=== PATIENT | female | born 1960 | race Caucasian/White ===

== ENCOUNTER 2016-06-18 12:04 | Emergency (ER) | payer BC ==
--- NOTE | 2016-06-18 12:16 | CPEKG ---
Heart Rate: 51 RR Interval: 1176 P-R Interval: 164 QRSD Interval: 82 QT Interval: 448 QTC Interval: 413 P Gasquet: 49 QRS Gasquet: 55 T Wave Gasquet: 40 EKG Severity - NORMAL ECG - EKG Impression: SINUS RHYTHM Electronically Signed By: Rafael Deal 18-Jun-2016 15:21:19
[2016-06-18] MEDS ORDERED: ASPIRIN 325 MG TAB PO ONE (12:18)
[2016-06-18] MEDS ORDERED: ASPIRIN 81 MG CHEWABLE TAB ONE (12:22)
--- NOTE | 2016-06-18 12:24 | EDPHY ---
H & P Time Seen by Provider: 06/18/16 12:12 HPI/ROS: Chief complaint. Chest pain HPI. 56-year-old female with substernal chest discomfort waxing and waning beginning during the night. He symptoms last 15-30 seconds. Maybe some radiation to her back. It did awake her the patient. No nausea or shortness of breath. No exacerbating or relieving factors including movement breathing or exertion. No leg symptoms. She is otherwise not sick with fever or cough. ROS Constitutional. no fever/chills, no weakness Eyes. no problems with vision ENT. no sore throat, no nasal drainage Cardiovascular. Chest pain Respiratory. no shortness of breath, no cough Abdominal. no abdominal pain, no nausea/vomiting, no diarrhea . no problems urinating MS. no calf pain/swelling, no neck/back pain, no joint pain Skin. no rash Lymph. no swollen glands Neuro. no headache, no dizziness, no difficulty walking or with speech Past Medical/Surgical History: Denies any past medical history Family history is negative for early coronary artery disease Social History: nonsmoker no alcohol Smoking Status: Former smoker Physical Exam: General Appearance: Alert well-developed female no distress vital signs are stable Eyes: Pupils equal and round no pallor or injection. ENT, Mouth: Mucous membranes are moist. Respiratory: There are no retractions, lungs are clear to auscultation. Cardiovascular: Regular rate and rhythm. Gastrointestinal: Abdomen is soft and nontender, no masses, bowel sounds normal. Neurological: Awake and alert, sensory and motor exams grossly normal. Skin: Warm and dry, no rashes. Musculoskeletal: Neck is supple nontender. Extremities symmetrical, full range of motion. Psychiatric: Patient is oriented X 3, there is no agitation. Constitutional: Initial Vital Signs Temperature (C) 36.7 C 06/18/16 12:06 Heart Rate 61 06/18/16 12:06 Respiratory Rate 18 06/18/16 12:06 Blood Pressure 120/75 06/18/16 12:06 O2 Sat (%) 96 06/18/16 12:06 O2 Delivery Mode Room Air Allergies/Adverse Reactions: No Known Allergies Allergy (Unverified 06/18/16 12:08) Home Medications: Medication Instructions Recorded NK [No Known Home Meds] 06/18/16 Medical Decision Making - Diagnostics EKG Interpretation: EKG interpreted by me shows normal sinus rhythm with normal interval and axis. QRS is normal there is no significant ST elevation or depression. The rate is 51 Imaging: Chest x-ray interpreted by me is normal Procedures: IV normal saline, monitor. Aspirin in the emergency department ED Course/Re-evaluation: Re-evaluation the patient continues without symptoms. Patient is offered admission and she declines. Patient, her , and I discussed imaging, lab, EKG studies. We discussed treatment plan including criteria for return and need for further evaluation. She expresses understanding and agreement Differential Diagnosis: I considered acute coronary syndrome, pulmonary embolus, pneumonia, gastritis - Data Points Laboratory Results: Laboratory Results 06/18/16 12:15 06/18/16 12:15 06/18/16 06/18/16 06/18/16 12:23 12:23 12:15 WBC RBC Hgb Hct MCV MCH MCHC RDW Plt Count MPV Neut % (Auto) Lymph % (Auto) [place] % (Auto) Eos % (Auto) Baso % (Auto) Nucleat RBC Rel Count Absolute Neuts (auto) Absolute Lymphs (auto) Absolute Monos (auto) Absolute Eos (auto) Absolute Basos (auto) Absolute Nucleated RBC Immature Gran % Immature Gran # D-Dimer 0.36 ug/mLFEU ug/mLFEU (0.00-0.50) Sodium 139 mEq/L mEq/L (134-144) Potassium 4.2 mEq/L mEq/L (3.5-5.2) Chloride 107 mEq/L mEq/L (97-110) Carbon Dioxide 25 mEq/l mEq/l (22-31) Anion Gap 7 mEq/L L mEq/L (8-16) BUN 19 mg/dL mg/dL (7-23) Creatinine 0.8 mg/dL mg/dL (0.6-1.0) Estimated GFR > 60 Glucose 104 mg/dL H mg/dL (70-100) Calcium 9.2 mg/dL mg/dL (8.5-10.4) Troponin I < 0.012 ng/mL ng/mL (0-0.034) NT-Pro-B Natriuret Pep 130 pg/mL H pg/mL (0-125) 06/18/16 12:15 WBC 7.52 10^3/uL 10^3/uL (3.80-9.50) RBC 5.09 10^6/uL 10^6/uL (4.18-5.33) Hgb 15.7 g/dL g/dL (12.6-16.3) Hct 45.4 % % (38.0-47.0) MCV 89.2 fL fL (81.5-99.8) MCH 30.8 pg pg (27.9-34.1) MCHC 34.6 g/dL g/dL (32.4-36.7) RDW 12.6 % % (11.5-15.2) Plt Count 226 10^3/uL 10^3/uL (150-400) MPV 10.8 fL fL (8.7-11.7) Neut % (Auto) 64.5 % % (39.3-74.2) Lymph % (Auto) 26.3 % % (15.0-45.0) [place] % (Auto) 6.4 % % (4.5-13.0) Eos % (Auto) 1.7 % % (0.6-7.6) Baso % (Auto) 0.8 % % (0.3-1.7) Nucleat RBC Rel Count 0.0 % % (0.0-0.2) Absolute Neuts (auto) 4.85 10^3/uL 10^3/uL (1.70-6.50) Absolute Lymphs (auto) 1.98 10^3/uL 10^3/uL (1.00-3.00) Absolute Monos (auto) 0.48 10^3/uL 10^3/uL (0.30-0.80) Absolute Eos (auto) 0.13 10^3/uL 10^3/uL (0.03-0.40) Absolute Basos (auto) 0.06 10^3/uL 10^3/uL (0.02-0.10) Absolute Nucleated RBC 0.00 10^3/uL 10^3/uL (0-0.01) Immature Gran % 0.3 % % (0.0-1.1) Immature Gran # 0.02 10^3/uL 10^3/uL (0.00-0.10) D-Dimer Sodium Potassium Chloride Carbon Dioxide Anion Gap BUN Creatinine Estimated GFR Glucose Calcium Troponin I NT-Pro-B Natriuret Pep Medications Given: Discontinued Medications Aspirin (Aspirin) 325 mg PO EDNOW ONE Stop: 06/18/16 12:19 Last Admin: 06/18/16 12:28 Dose: Not Given Aspirin (Aspirin) 324 mg PO EDNOW ONE Stop: 06/18/16 12:29 Last Admin: 06/18/16 12:25 Dose: 324 mg Departure - Departure Disposition: Home, Routine, Self-Care Clinical Impression: Chest pain Qualifiers: Chest pain type: unspecified Qualified Code(s): R07.9 - Chest pain, unspecified Condition: Good Instructions: Chest Pain (ED) Additional Instructions: Easy activity. Kimball diet. Return for worsening chest discomfort or trouble breathing. Follow up with Dr. Bella and call Cardiology tomorrow to arrange outpatient stress test for further evaluation Referrals: Lolly Bella MD [Primary Care Provider] - As per Instructions Jaden Gonzalez MD [Medical Doctor] - 2-3 days without fail
[2016-06-18] MEDS ORDERED: ASPIRIN 81 MG CHEWABLE TAB PO ONE (12:28)
[2016-06-18 12:36] LABS: % IMMATURE GRANULYOCYTES 0.3 % (0.0-1.1); ABSOLUTE IMMATURE GRANULOCYTES 0.02 10^3/uL (0.00-0.10); ADD DIFF? NO; ADD MORPH? NO; ADD SCAN? NO; ATYPICAL LYMPHOCYTE FLAG 10 (0-99); FRAGMENT RBC FLAG 0 (0-99); HEMATOCRIT 45.4 % (38.0-47.0); HEMOGLOBIN 15.7 g/dL (12.6-16.3); LEFT SHIFT FLG 0 (0-99); LIPEMIA HEMOLYSIS FLAG 90 (0-99); MEAN CELL HEMOGLOBIN 30.8 pg (27.9-34.1); MEAN CELL HEMOGLOBIN CONCENTR. 34.6 g/dL (32.4-36.7); MEAN CELL VOLUME 89.2 fL (81.5-99.8); MEAN PLATELET VOLUME 10.8 fL (8.7-11.7); PLATELET CLUMPS FLAG 10 (0-99); PLATELET COUNT 226 10^3/uL (150-400); RED BLOOD CELL COUNT 5.09 10^6/uL (4.18-5.33); RED CELL DISTRIBUTION WIDTH 12.6 % (11.5-15.2)
[2016-06-18 12:53] LABS: ANION GAP 7 mEq/L (8-16); CALCIUM 9.2 mg/dL (8.5-10.4); CARBON DIOXIDE 25 mEq/l (22-31); CHLORIDE 107 mEq/L (97-110); CREATININE 0.8 mg/dL (0.6-1.0); GLOMERULAR FILTRATION RATE > 60; GLUCOSE 104 mg/dL (70-100); POTASSIUM 4.2 mEq/L (3.5-5.2); SODIUM 139 mEq/L (134-144)
[2016-06-18 13:04] LABS: TROPONIN I < 0.012 ng/mL (0-0.034)
[2016-06-18 14:08] VITALS: BP 123/81; PULSE 62; RESP 16; TEMP 97.9; O2SAT 94
== END 2016-06-18 14:08 | disposition home or self-care (01) ==
DX: R07.9 Chest pain, unspecified (principal); Z87.891 Personal history of nicotine dependence

== ENCOUNTER → 2017-07-23 | Outpatient (CLI) | payer BC | LOC: BMCIMAGING 08:55 | PROVIDERS: ATTEND Internal Medicine | DX: Z12.31 Encounter for screening mammogram for malignant neoplasm of breast (principal); R92.8 Other abnormal and inconclusive findings on diagnostic imaging of breast ==

== ENCOUNTER → 2017-08-03 | Outpatient (CLI) | payer BC | LOC: BMCIMAGING 10:06 | PROVIDERS: ATTEND Internal Medicine | DX: R92.8 Other abnormal and inconclusive findings on diagnostic imaging of breast (principal) ==

== ENCOUNTER → 2018-09-26 | Outpatient (CLI) | payer BC | LOC: BMCIMAGING 09:01 ==